=== PATIENT | male | born 1995 | race Caucasian/White ===

== ENCOUNTER 2020-03-30 19:57 | Observation (INO) | payer SELFPAY ==
[~2020-03-30] VITALS: Ht 177.8 cm; Wt 80.0 kg
[~2020-03-30 19:57] MED LIST: IBUPROFEN200 M1 OR; NAPROSYN500 MG OR; NO HOME MEDS
--- NOTE | 2020-03-30 20:07 | NUR ---
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
[2020-03-30 20:34] LABS: HEMATOCRIT 45.5 % (39.0-50.0); HEMOGLOBIN 15.6 g/dl (14.0-18.0); IMMATURE GRANULOCYTES 0.3 % (0.0-5.0); MEAN CELL VOLUME 85.7 fL CALC (80.0-100.0); MEAN CORPUSCULAR HGB 29.4 pG CALC (26.0-32.0); MEAN CORPUSCULAR HGB CONC 34.3 g/dL CAL (32.0-36.0); NEUT# 6.07 thou/uL (1.82-7.42); RED BLOOD COUNT 5.31 mill/uL (4.70-6.10); RED CELL DISTRI WIDTH 11.8 % (11.5-15.5)
[2020-03-30 20:41] LABS: GFR > 60 ML/MIN (>=60 (CALC)); GFR FOR AFR.AMER. > 60 ML/MIN (>=60 (CALC))
--- NOTE | 2020-03-30 21:05 | NUR ---
PT HAS FREQ CELL PHONE CONVERSATIONS WITH HIS FAMILY.SPEECH IS CLEAR NO FOCAL DEFICITS
--- NOTE | 2020-03-30 21:15 | NUR ---
BLURRY VISIOIN L EYE HAS RESOLVED
[2020-03-30 21:22] LABS: ALBUMIN 4.9 g/dL (3.2-5.0); ANION GAP 14 (6-22 (CALC)); BUN 16 mg/dL (9-20); BUN/CREATININE RATIO 15 (12-20 (CALC)); CARBON DIOXIDE 26 mmol/l (22-30); CHLORIDE 99 mmol/l (95-108); GFR > 60 ML/MIN (>=60 (CALC)); GFR FOR AFR.AMER. > 60 ML/MIN (>=60 (CALC)); POTASSIUM 3.7 mmol/l (3.5-5.1); SGOT/AST 29 u/l (17-59); SODIUM 135 mmol/l (137-146); TOTAL PROTEIN 8.1 g/dL (6.3-8.2)
[2020-03-30 21:23] LABS: ALKALINE PHOSPHATASE 84 u/l (38-126); BILIRUBIN, TOTAL 1.3 mg/dL (0.0-1.4)
[2020-03-30 21:34] LABS: MYOGLOBIN 62 ng/mL (0 - 121)
--- NOTE | 2020-03-30 22:51 | NUR ---
A/OX3 [facility] 15 BLURRY VISION L EYE HAS RESOLVED EATING ON TV DINNER WITH MARGO
--- NOTE | 2020-03-30 22:59 | NUR ---
PT IS A/OX3 NO FOCAL WEAKNERSSES BLURRY VISION HAS RESSOLVED.SR NO ECTOPY NO NAUSEA.PT HAS EATEN SNACK OF PEAANUT BUTTER CRACKETS PUDDING MILK AND JUICE
--- NOTE | 2020-03-30 23:51 | NUR ---
[facility] 15 SPEECH IS CLEAR PT TALKING WITH FAMILY AND FRIENDS ALMOST CONTINUOUSLY ON HIS CELL PHONE IN NAD
--- NOTE | 2020-03-31 00:45 | NUR ---
PT WAS UP IN ROOM REARRANGING THE BEDESIDE TABLE AND OTHER FIXTURES TO SUIT HIS NEEDS,[facility] IN 15 UNCHANGED A/OX3 NO FOCAL DEFICITS.SR NO ECTOPY W/T/D SKIN
[2020-03-31 02:57] LABS: URINE BILIRUBIN - DIPSTICK NEGATIVE (NEGATIVE); URINE BLOOD DIPSTICK NEGATIVE (NEGATIVE); URINE COLOR YELLOW; URINE GLUCOSE - DIPSTICK NEGATIVE (NEGATIVE); URINE KETONE NEGATIVE (NEGATIVE); URINE LEUK ESTERASE NEGATIVE (NEGATIVE); URINE NITRITE - DIPSTICK NEGATIVE (Negative); URINE PROTEIN - DIPSTICK NEGATIVE (NEG-TRACE); URINE SPECIFIC GRAVITY 1.025
[2020-03-31 06:18] LABS: HEMATOCRIT 45.6 % (39.0-50.0); HEMOGLOBIN 15.6 g/dl (14.0-18.0); IMMATURE GRANULOCYTES 0.3 % (0.0-5.0); MEAN CELL VOLUME 87.2 fL CALC (80.0-100.0); MEAN CORPUSCULAR HGB 29.8 pG CALC (26.0-32.0); MEAN CORPUSCULAR HGB CONC 34.2 g/dL CAL (32.0-36.0); NEUT# 2.14 thou/uL (1.82-7.42); RED BLOOD COUNT 5.23 mill/uL (4.70-6.10); RED CELL DISTRI WIDTH 11.7 % (11.5-15.5)
[2020-03-31 06:38] LABS: ALBUMIN 4.6 g/dL (3.2-5.0); ALKALINE PHOSPHATASE 80 u/l (38-126); ANION GAP 11 (6-22 (CALC)); BILIRUBIN, TOTAL 1.1 mg/dL (0.0-1.4); BUN 16 mg/dL (9-20); BUN/CREATININE RATIO 18 (12-20 (CALC)); CARBON DIOXIDE 30 mmol/l (22-30); CHLORIDE 100 mmol/l (95-108); CREATININE 0.9 mg/dL (0.7-1.3); GFR > 60 ML/MIN (>=60 (CALC)); GFR FOR AFR.AMER. > 60 ML/MIN (>=60 (CALC)); POTASSIUM 4.1 mmol/l (3.5-5.1); SGOT/AST 29 u/l (17-59); SODIUM 137 mmol/l (137-146); TOTAL PROTEIN 7.3 g/dL (6.3-8.2)
--- NOTE | 2020-03-31 07:03 | NUR ---
PT REPORT TO AMANDA GRAHAM
--- NOTE | 2020-03-31 07:20 | NUR ---
AM ASSESSMENT COMPLETE SEE INTERCENTIONS, NO COMPLAUITNS STATES FEELING MUCH BETTER BUT STILL JUST EXHAUSETED FROM THE TIME IN THE SUN SET UP ASSIST FOR AM MEAL,
[2020-03-31 08:00] VITALS: BP 101/64
--- NOTE | 2020-03-31 09:21 | NUR ---
PT RESTING AWARE OF CONTINUED WAIT FOR BED AND MRI, NO NEW COMPLAINTS OFFERED.
--- NOTE | 2020-03-31 10:18 | NUR ---
INTO SEE PT, PLAN OF CARE DISCUSSED, INCLUDING D/C AFTER MRI COMPLETED IF RESULTS NEGATIVE
--- NOTE | 2020-03-31 11:00 | NUR ---
RECIEVED REPORT FROM TAMIKO
--- NOTE | 2020-03-31 11:46 | NUR ---
Pt MRI via W/C in stable condition
[2020-03-31 12:00] VITALS: BP 106/64
--- NOTE | 2020-03-31 12:20 | NUR ---
Pt returned to room from MRI via W/C. No distress noted. Explained wait time for results. Showed understanding.
--- NOTE | 2020-03-31 13:20 | NUR ---
Dr Celaya notified of repeat lab results by SANTOS Christensen. Proceed with discharge
[2020-03-31 13:50] VITALS: BP 101/64
--- NOTE | 2020-03-31 13:50 | NUR ---
Discharge instructions given. Patient verbalizes understanding of same. Discharged in stable condition via Wheelchair to Home with family. All belongings sent with pt.
== END 2020-03-31 13:50 | disposition home or self-care (01) | DRG 923 ==
LOC: ED 19:57 → ED-I 21:17 → ED 21:30 → ED-I 21:31
PROVIDERS: Emergency Medicine; ADMIT Internal Medicine; ATTEND Internal Medicine
DX: T67.5XXA Heat exhaustion, unspecified, initial encounter (principal); F12.90 Cannabis use, unspecified, uncomplicated; F15.90 Other stimulant use, unspecified, uncomplicated; F17.200 Nicotine dependence, unspecified, uncomplicated; X30.XXXA Exposure to excessive natural heat, initial encounter; Y93.59 Activity, other involving other sports and athletics played individually; Z20.828 Contact with and (suspected) exposure to other viral communicable diseases

== ENCOUNTER 2021-06-19 13:02 | Emergency (ER) | payer SELFPAY ==
[~2021-06-19] VITALS: Ht 177.8 cm; Wt 78.0 kg
[2021-06-19] MEDS ORDERED: ZPAK PO (14:22)
[2021-06-19 14:45] VITALS: BP 126/73
== END 2021-06-19 14:44 | disposition home or self-care (01) | DRG 866 ==
LOC: ED 13:02
DX: B34.9 Viral infection, unspecified (principal); F17.200 Nicotine dependence, unspecified, uncomplicated; Z20.822 Contact with and (suspected) exposure to COVID-19

== ENCOUNTER 2021-07-05 21:31 | Emergency (ER) | payer SELFPAY ==
[~2021-07-05] VITALS: Ht 177.8 cm; Wt 77.0 kg
[~2021-07-05 21:31] MED LIST changes: +ZPAK PO
[2021-07-05 22:01] LABS: HEMATOCRIT 41.9 % (39.0-50.0); IMMATURE GRANULOCYTES 0.5 % (0.0-5.0); MEAN CELL VOLUME 90.7 fL CALC (80.0-100.0); MEAN CORPUSCULAR HGB 29.4 pG CALC (26.0-32.0); MEAN CORPUSCULAR HGB CONC 32.5 g/dL CAL (32.0-36.0); NEUT# 4.64 thou/uL (1.82-7.42); RED BLOOD COUNT 4.62 mill/uL (4.70-6.10); RED CELL DISTRI WIDTH 12.3 % (11.5-15.5)
[2021-07-05 22:04] LABS: HEMOGLOBIN 13.6 g/dl (14.0-18.0)
[2021-07-05 22:07] LABS: ALBUMIN 4.5 g/dL (3.2-5.0); ALKALINE PHOSPHATASE 106 u/l (38-126); ANION GAP 15 (6-22 (CALC)); BILIRUBIN, TOTAL 0.9 mg/dL (0.0-1.4); BUN 15 mg/dL (9-20); BUN/CREATININE RATIO 14 (12-20 (CALC)); CARBON DIOXIDE 26 mmol/l (22-30); CHLORIDE 103 mmol/l (95-108); GFR > 60 ML/MIN (>=60 (CALC)); GFR FOR AFR.AMER. > 60 ML/MIN (>=60 (CALC)); POTASSIUM 3.7 mmol/l (3.5-5.1); SGOT/AST 26 u/l (17-59); SODIUM 140 mmol/l (137-146); TOTAL PROTEIN 8.1 g/dL (6.3-8.2)
[2021-07-05 22:15] LABS: URINE BILIRUBIN - DIPSTICK NEGATIVE (NEGATIVE); URINE BLOOD DIPSTICK NEGATIVE (NEGATIVE); URINE COLOR YELLOW; URINE GLUCOSE - DIPSTICK NEGATIVE (NEGATIVE); URINE KETONE NEGATIVE (NEGATIVE); URINE LEUK ESTERASE NEGATIVE (NEGATIVE); URINE NITRITE - DIPSTICK NEGATIVE (Negative); URINE PROTEIN - DIPSTICK 30 mg/dL (NEG-TRACE); URINE SPECIFIC GRAVITY >=1.030
[2021-07-05 22:19] LABS: MYOGLOBIN 43 ng/mL (0 - 121)
[2021-07-06 11:19] VITALS: BP 117/73
== END 2021-07-06 11:19 | disposition home or self-care (01) | DRG 897 ==
LOC: ED 21:31
PROVIDERS: Emergency Medicine
DX: F19.10 Other psychoactive substance abuse, uncomplicated (principal); F17.200 Nicotine dependence, unspecified, uncomplicated; Z20.822 Contact with and (suspected) exposure to COVID-19

== ENCOUNTER 2021-10-15 08:25 | Emergency (ER) | payer SELFPAY ==
[~2021-10-15] VITALS: Ht 177.8 cm; Wt 70.0 kg
[2021-10-15 08:37] VITALS: BP 138/80
== END 2021-10-15 08:38 | disposition left against medical advice (07) | DRG 951 ==
LOC: ED 08:25 → LWOBS 08:34
DX: Z53.21 Procedure and treatment not carried out due to patient leaving prior to being seen by health care provider (principal)

== ENCOUNTER 2022-10-01 18:35 | Emergency (ER) | payer SELFPAY ==
[~2022-10-01] VITALS: Ht 177.8 cm; Wt 81.8 kg
[2022-10-01 19:06] VITALS: BP 118/89
[2022-10-01] MEDS ORDERED: BACTRIM DS1 TAB PO (19:17)
[2022-10-01] MEDS ORDERED: BACTROBAN TOP (19:17)
[2022-10-01] MEDS ORDERED: NAPROXEN500 MG PO (19:17)
[2022-10-01 19:26] VITALS: BP 118/89
== END 2022-10-01 19:35 | disposition home or self-care (01) | DRG 603 ==
LOC: ED 18:35
DX: L03.211 Cellulitis of face (principal)

== ENCOUNTER 2023-10-24 16:36 | Emergency (ER) | payer SELFPAY ==
[~2023-10-24] VITALS: Ht 177.8 cm; Wt 79.4 kg
[~2023-10-24 16:36] MED LIST changes: +BACTRIM DS1 TAB PO; +BACTROBAN TOP; +NAPROXEN500 MG PO
[2023-10-24 16:44] VITALS: BP 111/79
[2023-10-24 17:37] LABS: BASO% 0.9 % (0-3); EOS% 3.3 % (0-8); HEMOGLOBIN 12.7 g/dl (14.0-18.0); IMMATURE GRANULOCYTES 0.4 % (0.0-5.0); LYMPH% 29.5 % (15-41); MEAN CELL VOLUME 85.9 fL CALC (80.0-100.0); MEAN CORPUSCULAR HGB CONC 32.6 g/dL CAL (32.0-36.0); MONO% 8.1 % (2-13); NEUT# 3.2 thou/uL (1.82-7.42); NEUT% 57.8 % (42-76); RED BLOOD COUNT 4.54 mill/uL (4.70-6.10); RED CELL DISTRI WIDTH 12.7 % (11.5-15.5)
[2023-10-24 17:46] LABS: URINE BLOOD DIPSTICK Negative (NEGATIVE); URINE GLUCOSE - DIPSTICK Negative (NEGATIVE); URINE KETONE Trace mg/dL (NEGATIVE); URINE LEUK ESTERASE Negative (NEGATIVE); URINE NITRITE - DIPSTICK Negative (Negative); URINE PH 6.5 (4.5-8.0); URINE PROTEIN - DIPSTICK 30 mg/dL (NEG-TRACE); URINE SPECIFIC GRAVITY 1.025
[2023-10-24 17:51] LABS: BUN 12 mg/dL (9-20); BUN/CREATININE RATIO 13 (12-20 (CALC)); CARBON DIOXIDE 26 mmol/l (22-30); CREATININE 0.9 mg/dL (0.7-1.3); GFR FOR AFR.AMER. > 60 ML/MIN (>=60 (CALC)); GFR OTHER RACES > 60 ML/MIN (>=60 (CALC)); SGOT/AST 21 u/l (17-59); URINE COLOR Yellow
[2023-10-24 17:52] LABS: ALBUMIN 4.4 g/dL (3.2-5.0); ALKALINE PHOSPHATASE 102 u/l (38-126); BILIRUBIN, TOTAL 0.6 mg/dL (0.2-1.3); LIPASE 38 u/l (23-300); TOTAL PROTEIN 7.8 g/dL (6.3-8.2)
[2023-10-24 17:54] LABS: ANION GAP 12 (6-22 (CALC)); CHLORIDE 106 mmol/l (95-108); POTASSIUM 3.3 mmol/l (3.5-5.1); SODIUM 141 mmol/l (137-146)
[2023-10-24 17:57] LABS: URINE RBC 0-2 RBC/hpf (0-5); URINE WBC 0-2 WBC/hpf (0-5)
[2023-10-24] MEDS ORDERED: VIBRAMYCIN100 M2 PO (18:41)
[2023-10-24 18:43] VITALS: BP 118/85
[2023-10-24 18:55] VITALS: BP 118/85
== END 2023-10-24 18:47 | disposition home or self-care (01) | DRG 869 ==
LOC: ED 16:36
PROVIDERS: Nurse Practitioner
DX: A53.9 Syphilis, unspecified (principal); F17.200 Nicotine dependence, unspecified, uncomplicated

== ENCOUNTER 2024-06-10 20:27 | Emergency (ER) | payer SELFPAY ==
[2024-06-10] VITALS (7 sets, daily range): BP systolic 113–120; BP diastolic 79–87
[~2024-06-10] VITALS: Ht 175.3 cm; Wt 70.0 kg
[~2024-06-10 20:27] MED LIST changes: +VIBRAMYCIN100 M2 PO
[2024-06-10] MEDS ORDERED: ONDANSETRON HCl 4 MG/2 ML SDV IV ONE (20:50)
[2024-06-10] MEDS ORDERED: SODIUM CHLORIDE 0.9% 1,000 ML IV ONE ×2 (20:50)
[2024-06-10 21:03] LABS: BASO% 0.6 % (0-3); EOS% 0.4 % (0-8); IMMATURE GRANULOCYTES 0.4 % (0.0-5.0); LYMPH% 13.3 % (15-41); MEAN CELL VOLUME 85.4 fL CALC (80.0-100.0); MEAN CORPUSCULAR HGB 28.4 pG CALC (26.0-32.0); MEAN CORPUSCULAR HGB CONC 33.2 g/dL CAL (32.0-36.0); MONO% 8.1 % (2-13); NEUT# 10.62 thou/uL (1.82-7.42); NEUT% 77.2 % (42-76); RED BLOOD COUNT 5.96 mill/uL (4.70-6.10); RED CELL DISTRI WIDTH 11.8 % (11.5-15.5)
[2024-06-10 21:05] LABS: HEMATOCRIT 50.9 % (39.0-50.0); HEMOGLOBIN 16.9 g/dl (14.0-18.0)
[2024-06-10 21:15] LABS: ALBUMIN 5.6 g/dL (3.2-5.0); BILIRUBIN, TOTAL 1.4 mg/dL (0.2-1.3); CREATININE 2.8 mg/dL (0.7-1.3); MAGNESIUM 2.2 mg/dL (1.6-2.3); POTASSIUM 4.5 mmol/l (3.5-5.1); TOTAL PROTEIN 10.9 g/dL (6.3-8.2)
[2024-06-10] MEDS ORDERED: SODIUM CHLORIDE 0.9% 1,000 ML IV STA (22:09)
[2024-06-10 23:44] LABS: URINE BLOOD DIPSTICK Negative (NEGATIVE); URINE GLUCOSE - DIPSTICK Negative (NEGATIVE); URINE KETONE Trace mg/dL (NEGATIVE); URINE LEUK ESTERASE Negative (NEGATIVE); URINE NITRITE - DIPSTICK Negative (Negative); URINE PH 5.5 (4.5-8.0); URINE PROTEIN - DIPSTICK 30 mg/dL (NEG-TRACE); URINE SPECIFIC GRAVITY >=1.030
[2024-06-10 23:49] LABS: URINE COLOR Yellow
[2024-06-11] VITALS: BP 126/99
[2024-06-11 00:06] LABS: URINE SQUAMOUS EPITHELIAL CELL FEW EPI/hpf (0-FEW)
[2024-06-11 00:07] LABS: URINE AMORPH SEDIMENT FEW hpf (NONE-FER); URINE FINE GRAN CAST MODERATE lpf
[2024-06-11 00:20] VITALS: BP 126/99
== END 2024-06-11 00:24 | disposition home or self-care (01) | DRG 641 ==
LOC: ED 20:27
PROVIDERS: Family Medicine
DX: E86.0 Dehydration (principal); N17.9 Acute kidney failure, unspecified; F19.10 Other psychoactive substance abuse, uncomplicated